=== PATIENT | male | born 1995 | race Caucasian/White ===

== ENCOUNTER 2017-04-06 10:49 | Emergency (ER) | payer OTHER ==
[~2017-04-06] VITALS: Ht 177.8 cm; Wt 77.1 kg
--- NOTE | 2017-04-06 11:05 | ED SKIN/ALLERGY COMPLAINT ---
History of Present Illness General Chief Complaint: Skin Rash/ Abcess Stated Complaint: RECTAL ABCESS Source: patient Exam Limitations: no limitations Vital Signs & Intake/Output Vital Signs & Intake/Output Vital Signs Date Time Temp Pulse Resp B/P B/P Pulse O2 O2 Flow FiO2 Mean Ox Delivery Rate 04/06 1303 98.5 77 18 120/59 96 Room Air 04/06 1056 98.0 106 16 134/84 95 Room Air Allergies Coded Allergies: No Known Allergies (05/06/16) Reconcile Medications Cephalexin (Keflex) 500 MG CAPSULE 1 CAP PO BID CELLULITIS Sulfamethoxazole/Trimethoprim (Bactrim Ds Tablet) 800 MG-160 MG TABLET 1 TAB PO BID CELLULITIS Triage Note: 21 Y/O MALE C/O "I HAVE A PILONIDAL CYST" X 3 DAYS. REPORTS SMALL BUMP WITH PAIN JUST BELOW TAILBONE (PER PT). STATES HE STARTED USING WARM SOAKS OVERNIGHT AND HAS NOTICED A SMALL AMOUNT OF DRAINAGE. FELT "FEVERISH" AT HOME - AFEBRILE. Triage Nurses Notes Reviewed? yes Onset: Gradual Duration: constant Timing: recent history Severity: moderate Severity Numbers: 5 HPI: Patient is a 21-year-old male who presents emergent with concerns of a abscess in which patient states for the last 3 days he's noticed a tender region near his rectal area where he has been applying warm compresses to the region where he has noticed spontaneous purulent discharge. Positive for tactile chills. (JAIRO OMER) Past History Travel History Traveled to [place] past 21 day No Medical History Any Pertinent Medical History? see below for history Neurological: NONE EENT: NONE Cardiovascular: NONE Respiratory: NONE Gastrointestinal: NONE Hepatic: NONE Renal: NONE Musculoskeletal: NONE Psychiatric: anxiety Endocrine: NONE Blood Disorders: NONE Cancer(s): NONE CONSTRUCTION FOREMAN/Reproductive: NONE Tetanus Vaccine: 05/06/16 Surgical History Surgical History: non-contributory Psychosocial History What is your primary language Hebrew Tobacco Use: Current Daily Use Daily Tobacco Use Amount/Type: => 5 Cigarettes daily Family History Hx Contributory? No (JAIRO OMER) Review of Systems Review of Systems Constitutional: Reports: see HPI, fever. EENTM: Reports: no symptoms. Respiratory: Reports: no symptoms. Cardiovascular: Reports: no symptoms. GI: Reports: no symptoms. Genitourinary: Reports: no symptoms. Musculoskeletal: Reports: no symptoms. Skin: Reports: see HPI. Neurological/Psychological: Reports: no symptoms. Hematologic/Endocrine: Reports: no symptoms. Immunologic/Allergic: Reports: no symptoms. All Other Systems: Reviewed and Negative (JAIRO OMER) Physical Exam Physical Exam General Appearance: no apparent distress, alert Gastrointestinal: normal bowel sounds, soft, non-tender, no organomegaly Rectal: NOTED PERIRECTAL FLUCTUANCE TENDERNESS PURULENT DISCHARGE ERYTHEMA WARMTH Skin: warm/dry Comments: Well-developed well-nourished no apparent distress. HEENT: Atraumatic, extraocular motion intact Neck: Supple, no lymphadenopathy Back: Nontender Respiratory: No respiratory distress Extremities: No edema, full range of motion Neuro: Alert and oriented x3 Psych: Mood affect normal, normal memory normal judgment. (JAIRO OMER) Progress Differential Diagnosis: abscess/cellulitis, allergic reaction, anaphylaxis, lyme disease Plan of Care: Orders Procedure Date/time Status TRUNK AREA CULTURE 04/06 1222 Active Microbiology 04/06 1300 TRUNK: Culture & Sensitivity - RECD 04/06 1300 TRUNK: Gram Stain - RECD Patient tolerated this incision and drainage well. Patient went strongly advised to present to the emergency room if symptoms worsen and Bactrim and Keflex were prescribed. Upon discharge patient looks well no apparent distress afebrile nontoxic appearing (JAIRO OMER) Departure Departure Disposition: HOME OR SELF CARE Condition: Stable Clinical Impression Primary Impression: Perirectal abscess Referrals: PATIENT HAS NO PRIMARY CARE DR (PCP/Family) Additional Instructions: As discussed begin to apply warm compresses to the area. Begin the prescription Keflex and Bactrim as directed. If the bandages fall off replace with the extra bandages provided to the emergency room. If symptoms worsen or if YOU develop any new concerning symptom return to emergency room. Return to emergency room in 2 days for a wound recheck Prescriptions are waiting at [facility] Departure Forms: Customer Survey General Discharge Information Prescriptions: Current Visit Scripts Cephalexin (Keflex) 1 CAP PO BID #20 CAP Sulfamethoxazole/Trimethoprim (Bactrim Ds Tablet) 1 TAB PO BID #20 TAB (JAIRO OMER) PA/JOINT FINISHER Co-Sign Statement Statement: ED Attending supervision documentation- [] I saw and evaluated the patient. I have also reviewed all the pertinent lab results and diagnostic results. I agree with the findings and the plan of care as documented in the PA's/JOINT FINISHER's documentation. [X] I have reviewed the ED Record and agree with the PA's/JOINT FINISHER's documentation. [] Additions or exceptions (if any) to the PAs/JOINT FINISHER's note and plan are summarized below: [] (RIGOBERTO FAIR,KAYLYNN Hoover) Procedures Incision and Drainage Site: PERIRECTAL Blade Size: 11 I & D Procedure: Yes: betadine prep, sterile drapes applied, sterile dressing applied. No: wick placed. Progress: Using sterile technique a Betadine 5 mL of 1% lidocaine was used for local anesthesia 1 cm incision was placed with mild purulent discharge culture was obtained gauze and Tegaderm were applied (JAIRO OMER)
[2017-04-06] MEDS ORDERED: KEFLEX500 M1 PO (12:55)
[2017-04-06] MEDS ORDERED: BACTRIM DS TAB1 EACH PO (12:55)
[2017-04-06 13:03] VITALS: BP 120/59
== END 2017-04-06 13:18 ==
LOC: ERH 10:49
DX: K61.1 Rectal abscess (principal)
CPT/HCPCS: 87070

== ENCOUNTER 2017-04-08 15:32 | Emergency (ER) | payer OTHER ==
[~2017-04-08] VITALS: Ht 177.8 cm; Wt 74.8 kg
[~2017-04-08 15:32] MED LIST: BACTRIM DS TAB1 EACH PO; KEFLEX500 M1 PO
[2017-04-08 15:43] VITALS: BP 130/94
--- NOTE | 2017-04-08 16:07 | ED ANIMAL BITE/WOUND CHECK ---
History of Present Illness General Chief Complaint: Suture Removal/Wound Recheck Stated Complaint: WOUND CHECK Source: patient, old records Exam Limitations: no limitations Vital Signs & Intake/Output Vital Signs & Intake/Output Vital Signs Date Time Temp Pulse Resp B/P B/P Pulse O2 O2 Flow FiO2 Mean Ox Delivery Rate 04/08 1543 97.9 115 15 130/94 97 Room Air Room Air Allergies Coded Allergies: No Known Allergies (04/08/17) Reconcile Medications Cephalexin (Keflex) 500 MG CAPSULE 1 CAP PO BID CELLULITIS Sulfamethoxazole/Trimethoprim (Bactrim Ds Tablet) 800 MG-160 MG TABLET 1 TAB PO BID CELLULITIS Triage Note: PT TO ED FOR WOUND CHECK OF MILAD-RECTAL ABCESS THAT WAS DRAINED TWO DAYS AGO. DENIES ANY COMPLICATIONS OR FEVERS. Triage Nurses Notes Reviewed? yes Onset: Abrupt Duration: day(s): (3), constant Timing: recent history Injury Environment: home Is Injury an Animal Bite? No Severity: mild Severity Numbers: 3 No Modifying Factors: none Associated Symptoms: denies HPI: 21-year-old male presents for wound check status post having an incision and drainage to the abscess to his perirectal region 3 days ago. He denies any palpitations no pain no fever no chills. He has been point with his antibiotics. There are no modifying factors or associated symptoms (JAIRO ANDINO) Past History Travel History Traveled to [place] past 21 day No Medical History Any Pertinent Medical History? 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 No (JAIRO ANDINO) Review of Systems Review of Systems Constitutional: Reports: see HPI. All Other Systems: Reviewed and Negative Comments Review of systems: See HPI, All other systems negative. Constitutional, no chills no fever, no malaise HEENT: no sore throat no congestion Cardiovascular: No chest pain , no palpitation Skin: no rashes, no change in skin Respiratory: No dyspnea no cough no sputum GI: No nausea no vomiting, no diarrhea, Muscle skeletal: No joint pain, no joint swelling, no back pain, no neck pain, Neurologic: No numbness no headache Psych: No stress Heme/endocrine: No bruising immuno: no lymphadenopathy (JAIRO ANDINO) Physical Exam Physical Exam General Appearance: well developed/nourished, no apparent distress, alert, awake Comments: Well-developed well-nourished patient in no apparent distress. HEENT: Atraumatic, extraocular motion intact Neck: Supple, FROM Back: FROM Respiratory: No respiratory distress. Patient speaking in full complete sentences. Breath sounds clear to auscultation bilaterally: NO W/R/R Extremities: full range of motion Neuro: awake, alert, and oriented to person, place and time. There were no obvious focal neurologic abnormalities. Skin: no induration fluctance, well healing, no overlying erythema, nontender, Warm & dry;No appreciable rash on exposed skin Psych: Mood affect normal, normal memory normal judgment. (JAIRO ANDINO) Progress Differential Diagnosis: abscess, cellulitis Plan of Care: I discussed with the patient plan of care he will continue with antibiotics I had an extensive conversation regarding need for close follow up with their primary care physician this week as well as return precautions. I answered all of their questions, they feel comfortable with the plan and follow-up care. (JAIRO ANDINO) Departure Departure Time of Disposition: 1615 Disposition: HOME OR SELF CARE Condition: Stable Clinical Impression Primary Impression: Wound check, abscess Referrals: PATIENT HAS NO PRIMARY CARE DR (PCP/Family) Additional Instructions: continue taking your antibiotics, return with any concerns Departure Forms: Customer Survey General Discharge Information (JAIRO ANDINO) PA/PROCESS MECHANIC Co-Sign Statement Statement: ED Attending supervision documentation- I saw and evaluated the patient. I have also reviewed all the pertinent lab results and diagnostic results. I agree with the findings and the plan of care as documented in the PA's/PROCESS MECHANIC's documentation. x I have reviewed the ED Record and agree with the PA's/PROCESS MECHANIC's documentation. [] Additions or exceptions (if any) to the PAs/PROCESS MECHANIC's note and plan are summarized below: [] (JOHNNY FAIR,ALISSA)
== END 2017-04-08 16:12 ==
LOC: ERH 15:32
DX: Z48.01 Encounter for change or removal of surgical wound dressing (principal)
CPT/HCPCS: 99281